=== PATIENT | female | born 2000 | race Caucasian/White ===

== ENCOUNTER 2020-07-03 02:24 | Emergency (ER) | payer SELFPAY ==
--- NOTE | 2020-07-03 02:28 | XR_ITS ---
WS: [id number] Chest 2 views, 07/03/2020 Clinical Data: cough Comparison: Portable chest, 01/29/2012. Findings: No nodules, masses or effusions are seen. The heart is normal. The pulmonary vascularity is not increased. No pneumonia or pneumothorax is seen. XR/XR chest 2V* [id number] Impression: Negative chest.
[2020-07-03 02:30] VITALS: BP 142/99; PULSE 133; RESP 17; TEMP 36.6; O2SAT 97; BMI 38.7
--- NOTE | 2020-07-03 02:39 | ECG_ITS ---
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 Measurements Intervals [place] Rate: 131 P: 19 HI: 140 QRS: 58 QRSD: 90 T: 1 QT: 296 QTc: 438 Interpretive Statements SINUS TACHYCARDIA NONSPECIFIC T-WAVE ABNORMALITY ABNORMAL RHYTHM ECG No previous ECG available for comparison Electronically Signed On 07-03-2020 11:32:59 CDT by Jami Montes De Oca M.D. [id number]
--- NOTE | 2020-07-03 02:41 | ED_ITS ---
HPI - General Adult General: Chief complaint: General Medical Stated complaint: cough/dizzy Time Seen by Provider: 07/03/20 02:28 Source: patient Mode of arrival: ambulatory Limitations: no limitations History of Present Illness: HPI narrative: 20-year-old female who states she is drinking water and felt like she aspirated some. States since then she is had some dizziness along with slight shortness of breath. Patient states she has severe anxiety has been feeling quite anxious as well. She denies any worsening improving factors. Patient is tachycardic and appears anxious here. Associated symptoms: Reports dyspnea; Deny chest pain, headache(s), nausea, rash or vomiting Review of Systems Const: Denies: fever(s), chills, body aches or change in appetite Eyes: Denies: blurry vision or eye discomfort ENMT: Denies: throat pain or dental pain Card: Denies: chest pain Resp: Reports: dyspnea GI: Denies: abdominal pain, nausea, vomiting or diarrhea : Denies: dysuria Musc: Denies: neck pain or back pain Skin/Breast: Denies: rash Neuro: Denies: headache(s) Psych: Reports: anxiety; Denies: depression Mike/Lymph: Denies: easy bruising All/Imm: Denies: urticaria [facility] ED Female Reproductive History: Date of last menstrual period: 07/02/20 Physical Exam Const: COMMON NORMALS: no acute distress, patient oriented x3 and healthy appearing HENMT: COMMON NORMALS: normocephalic and atraumatic HEAD & SCALP: normocephalic and atraumatic Eye: COMMON NORMALS: Equal, round and reactive pupils present and EOMs intact bilaterally PUPIL: Yes Equal, round and reactive pupils present Neck/C-Spine: COMMON NORMALS: full ROM and supple Chest: COMMONS NORMALS: normal inspection of the chest and normal palpation of entire chest wall Resp: COMMON NORMALS: normal respiratory effort, No retractions, No use of accessory muscles and clear to auscultation bilaterally AUSCULTATION: clear to auscultation bilaterally Cardio: COMMON NORMALS: regular rhythm and No murmurs present (Cardio) RATE: tachycardic RHYTHM: regular rhythm GI: COMMON NORMALS: Normal to inspection, nondistended, normoactive bowel sounds present, Soft to palpation, non-tender and no masses PALPATION: Yes Soft to palpation Extremity: COMMON NORMALS: normal to inspection and full ROM Neuro: COMMON NORMALS: patient oriented x3, moves all extremities and no focal motor deficits Psych: COMMON NORMALS: mental status grossly normal, Normal thought process present and cooperative MOOD & AFFECT: Yes anxious THOUGHT PROCESS: Normal thought process present Skin: COMMON NORMALS: no rashes or lesions noted and no wounds GENERAL SKIN EXAM: no rashes or lesions noted Course Vital Signs: Vital signs: Vital Signs Temperature 97.9 F 07/03/20 02:30 Pulse Rate 129 H 07/03/20 03:55 Respiratory Rate 16 07/03/20 03:55 Blood Pressure 130/82 07/03/20 03:55 Pulse Oximetry 98 07/03/20 03:55 MDM - General Adult MDM Narrative: Medical decision making narrative: Ai presents here with dyspnea after aspirating water. She has no signs of pneumonia and is well- appearing here. Patient is tachycardic but she states she has severe anxiety and is always tachycardic. Her d-dimer is negative and has no signs of pulmonary embolism. Patient feels improved here after Ativan. She is stable for discharge and is to follow-up with her primary care doctor in 3 to 5 days and return if worsening. Lab Data: Labs: Lab Results 07/03/20 07/03/20 07/03/20 Range/Units 02:55 02:55 02:55 WBC 10.2 H (4.0-10.0) 10^3/ uL RBC 5.13 (4.1-5.3) 10^6/u L Hgb 13.6 (11.5-15.3) g/dL Hct 44.1 (37.0-47.0) % MCV 86.0 (81-99) fL MCH 26.5 L (28.0-34.0) pg MCHC 30.8 (30.0-36.0) g/dL RDW 13.2 (12.1-15.1) % Plt Count 345 (130-400) 10^3/c mm MPV 11.6 H (7.4-10.4) fL Neut % (Auto) 69.1 % Lymph % (Auto) 23.2 % [place] % (Auto) 7.3 % Eos % (Auto) 0.1 % Baso % (Auto) 0.1 % Neut # (Auto) 7.06 (1.8-7.7) 10^3/u L Lymph # (Auto) 2.4 (0.8-4.8) 10^3/u L [place] # (Auto) 0.8 (0.2-0.9) 10^3/u L Eos # (Auto) 0.0 (0.0-0.8) 10^3/u L Baso # (Auto) 0.0 (0.0-0.1) 10^3/u L Nucleated RBC % (a uto) 0 % Nucleated RBCs # 0.0 /100WBC D-Dimer (0-0.59) ug/mIFE U Sodium 137 (136-145) mmol/L Potassium 3.7 (3.5-5.1) mmol/L Chloride 102 (98-107) mmol/L Carbon Dioxide 25 (22-29) mmol/L Anion Gap 13.7 (5-19) BUN 9 (6-20) mg/dL Creatinine 0.8 (0.5-0.9) mg/dL GFR Calculation 90.5 (90-130) mL/min Glucose 111 (65-115) mg/dL Calculated Osmolal ity 281 L (285-295) mOsm/k g Calcium 9.5 (8.5-10.5) mg/dL Total Bilirubin 0.4 (0.15-1.2) mg/dL AST 15 (0-32) U/L ALT 18 (0-33) U/L Alkaline Phosphata se 112 H (35-105) IU/L Total Protein 8.2 (6.6-8.7) g/dL Albumin 4.1 (3.5-5.2) g/dL Globulin 4.1 (1.3-4.6) g/dL HCG, Qual Negative (Negative) 07/03/20 Range/Units 02:55 WBC (4.0-10.0) 10^3/ uL RBC (4.1-5.3) 10^6/u L Hgb (11.5-15.3) g/dL Hct (37.0-47.0) % MCV (81-99) fL MCH (28.0-34.0) pg MCHC (30.0-36.0) g/dL RDW (12.1-15.1) % Plt Count (130-400) 10^3/c mm MPV (7.4-10.4) fL Neut % (Auto) % Lymph % (Auto) % [place] % (Auto) % Eos % (Auto) % Baso % (Auto) % Neut # (Auto) (1.8-7.7) 10^3/u L Lymph # (Auto) (0.8-4.8) 10^3/u L [place] # (Auto) (0.2-0.9) 10^3/u L Eos # (Auto) (0.0-0.8) 10^3/u L Baso # (Auto) (0.0-0.1) 10^3/u L Nucleated RBC % (a uto) % Nucleated RBCs # /100WBC D-Dimer 0.49 (0-0.59) ug/mIFE U Sodium (136-145) mmol/L Potassium (3.5-5.1) mmol/L Chloride (98-107) mmol/L Carbon Dioxide (22-29) mmol/L Anion Gap (5-19) BUN (6-20) mg/dL Creatinine (0.5-0.9) mg/dL GFR Calculation (90-130) mL/min Glucose (65-115) mg/dL Calculated Osmolal ity (285-295) mOsm/k g Calcium (8.5-10.5) mg/dL Total Bilirubin (0.15-1.2) mg/dL AST (0-32) U/L ALT (0-33) U/L Alkaline Phosphata se (35-105) IU/L Total Protein (6.6-8.7) g/dL Albumin (3.5-5.2) g/dL Globulin (1.3-4.6) g/dL HCG, Qual (Negative) Imaging Data^: CXR: Attestation: I personally reviewed and interpreted this imaging study as follows: My impression: no acute abnormality EKG Data^: EKG 1: Attestation: I personally reviewed and interpreted this EKG as follows: EKG interpretation date: 07/03/20 EKG interpretation time: 02:51 Interpretation: sinus tach hr [address] or t wave abnormalities Discharge Plan Discharge Patient Disposition: Home Clinical Impression: Dizziness, Cough, Anxiety Condition: Stable Discharge Orders: Discharge Order (Routine); Ordered 07/03/20 Ordered By: Seven Mercado Referrals: Bartolo,BELINDA Woodall [Primary Care Provider] - 1-3 days Discharge Diet: Advance as tolerated Discharge Activity: Resume usual activity Patient Instructions: Dizziness (ED) Discharge Date/Time: 07/03/20 03:55 Coding Level of Care Code ED Bobbin Hauler for Chg Fwd Exam Comprehensive
[2020-07-03] MEDS: sodium chloride 0.9% 1,000 ML 999 ML IV (02:52)
[2020-07-03 02:55] VITALS: BP 147/90; PULSE 133; RESP 16; O2SAT 97
[2020-07-03] MEDS: LORazepam 2 mg/mL INJ 1 mL 1 MG IVP (03:01)
--- NOTE | 2020-07-03 03:03 | PC.NURSE ---
PATIENT TO RADIOLOGY
[2020-07-03 03:06] LABS: Basophils % 0.1 %; Eosinophils % 0.1 %; Hematocrit 44.1 % (37.0-47.0); Hemoglobin 13.6 g/dL (11.5-15.3); Lymphocytes # 2.4 10^3/uL (0.8-4.8); Lymphocytes % 23.2 %; Mean Corpuscular HGB Conc 30.8 g/dL (30.0-36.0); Mean Corpuscular Hemoglobin 26.5 pg (28.0-34.0); Mean Platelet Volume 11.6 fL (7.4-10.4); Monocytes # 0.8 10^3/uL (0.2-0.9); Monocytes % 7.3 %; Neutrophils # 7.06 10^3/uL (1.8-7.7); Neutrophils % 69.1 %; Nucleated Red Blood Cells % 0 %; Platelet Count 345 10^3/cmm (130-400); Red Blood Count 5.13 10^6/uL (4.1-5.3); Red Cell Distribution Width 13.2 % (12.1-15.1); White Blood Count 10.2 10^3/uL (4.0-10.0)
[2020-07-03 03:16] LABS: Alanine Aminotransferase 18 U/L (0-33); Albumin Level 4.1 g/dL (3.5-5.2); Alkaline Phosphatase 112 IU/L (35-105); Anion Gap 13.7 (5-19); Aspartate Amino Transferase 15 U/L (0-32); Blood Urea Nitrogen 9 mg/dL (6-20); Calcium 9.5 mg/dL (8.5-10.5); Carbon Dioxide 25 mmol/L (22-29); Chloride 102 mmol/L (98-107); Globulin 4.1 g/dL (1.3-4.6); Glomerular Filtration Rate 90.5 mL/min (90-130); Glucose 111 mg/dL (65-115); Osmolality Calculated 281 mOsm/kg (285-295); Potassium 3.7 mmol/L (3.5-5.1); Sodium 137 mmol/L (136-145); Total Bilirubin 0.4 mg/dL (0.15-1.2); Total Protein 8.2 g/dL (6.6-8.7)
[2020-07-03 03:24] LABS: HCG, Serum Qual Negative (Negative)
[2020-07-03 03:28] VITALS: BP 136/88; PULSE 131; O2SAT 97
[2020-07-03 03:47] LABS: D Dimer 0.49 ug/mIFEU (0-0.59)
[2020-07-03 03:53] VITALS: BP 136/88; PULSE 129; RESP 16; O2SAT 99
[2020-07-03 03:55] VITALS: BP 130/82; PULSE 129; RESP 16; O2SAT 98
== END 2020-07-03 03:55 | disposition home or self-care (01) ==
PROVIDERS: Emergency Provider Emergency Medicine; PCP Nurse Practitioner Family
DX: R05 Cough (principal); R42 Dizziness and giddiness; F41.9 Anxiety disorder, unspecified
CPT/HCPCS: 12345; 71046; 80053; 84703; 85025; 85378; 93005; 96361; 96374; 96375; 99283; J2060; J7030

== ENCOUNTER → 2021-02-16 10:30 | Outpatient (BNVA) | payer OTHER, SELFPAY | PROVIDERS: Visit Provider Nurse Practitioner Psychiatric/Mental Health | DX: Z03.89 Encounter for observation for other suspected diseases and conditions ruled out (principal) | CPT/HCPCS: 80053 ==

== ENCOUNTER 2023-11-08 11:39 | Outpatient (CLI) | payer MEDICAID, SELFPAY ==
[2023-11-08 12:25] LABS: Basophils % 0.2 %; Eosinophils % 0.2 %; Hematocrit 40.9 % (36-47); Lymphocytes # 3.4 10^3/uL (0.8-4.8); Lymphocytes % 28.4 %; Mean Corpuscular HGB Conc 30.8 g/dL (30-55); Mean Corpuscular Hemoglobin 25.1 pg (27-33); Mean Corpuscular Volume 81.5 fl (85-98); Mean Platelet Volume 10.9 fL (7.4-10.4); Monocytes # 0.8 10^3/uL (0.2-0.9); Monocytes % 6.7 %; Neutrophils # 7.72 10^3/uL (1.8-7.7); Neutrophils % 64.1 %; Nucleated Red Blood Cells % 0 %; Platelet Count 344 10^3/cmm (157-399); Red Blood Count 5.02 10^6/uL (3.85-5.65); Red Cell Distribution Width 14.3 % (12.1-15.1); White Blood Count 12.04 10^3/uL (3.29-11.43)
[2023-11-08 13:00] LABS: Alanine Aminotransferase 11 U/L (0-33); Albumin Level 3.8 g/dL (3.5-5.2); Alkaline Phosphatase 103 U/L (35-105); Anion Gap 13.7 (5-19); Aspartate Amino Transferase 11 U/L (0-32); Blood Urea Nitrogen 16 mg/dL (6-20); Calcium 9.3 mg/dL (8.5-10.5); Carbon Dioxide 26 mmol/L (22-29); Chloride 104 mmol/L (98-107); Chol HDL Ratio 2.78 mg/dL (0.0-4.40); Cholesterol 136 mg/dL (0-200); Free T4 Free Thyroxine 1.02 ng/dL (0.82-1.77); Globulin 3.6 g/dL (1.3-4.6); Glomerular Filtration Rate 151.6 mL/min (90-130); Glucose 105 mg/dL (65-115); HDL Cholesterol 49 mg/dL (60-100); LDL Cholesterol Calculated 73 mg/dL (50-129); LDL HDL Ratio 1.49 RATIO (0.00-3.22); Osmolality Calculated 292 mOsm/kg (285-295); Potassium 3.7 mmol/L (3.5-5.1); Sodium 140 mmol/L (136-145); Thyroid Stimulating Hormone 4.88 uIU/mL (0.27-4.20); Total Bilirubin 0.2 mg/dL (0.15-1.2); Total Protein 7.4 g/dL (6.6-8.7); Triglycerides 70 mg/dL (0-150)
== END 2023-11-08 11:40 | disposition home or self-care (01) ==
LOC: LAB 11:58
PROVIDERS: PCP Nurse Practitioner Family; Visit Provider Nurse Practitioner Family
DX: I10 Essential (primary) hypertension (principal)
CPT/HCPCS: 36415; 80053; 80061; 84439; 84443; 85025

== ENCOUNTER 2024-03-31 10:45 | Emergency (ER) | payer MEDICAID, SELFPAY ==
[2024-03-31] VITALS (10 sets, daily range): BP systolic 118–151; BP diastolic 82–92; PULSE 98–111; RESP 16–20; TEMP 36.6; O2SAT 96–100
--- NOTE | 2024-03-31 10:51 | ECG_ITS ---
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 Measurements Intervals [place] Rate: 108 P: 27 W[place]: 143 QRS: 65 QRSD: 97 T: 42 QT: 318 QTc: 427 Interpretive Statements SINUS TACHYCARDIA ABNORMAL RHYTHM ECG Compared to ECG 07/03/2020 02:51:34 T-wave abnormality no longer present Electronically Signed On 04-01-2024 8:33:19 CDT by Chung Kumar M.D. [email or web address]/NU/[id number] f
--- NOTE | 2024-03-31 11:03 | XRR_ITS ---
PROCEDURE INFORMATION: Exam: XR Chest Exam date and time: 03/31/2024 11:09 AM Age: 23 years old Clinical indication: Pain; Chest pressure; Additional info: L lower chest pain TECHNIQUE: Imaging protocol: Radiologic exam of the chest. Views: 1 view. COMPARISON: CR XR chest 2V* [id number] 07/03/2020 3:12 AM FINDINGS: Lungs: The right lung is clear. There is mild ill-defined retrocardiac opacity on the left. Pleural spaces: There is no pleural effusion or pneumothorax. Heart/Mediastinum: The cardiac silhouette is within normal limits of size given AP technique. Bones/joints: Bones are unremarkable. XR/XR chest 1V portable [id number] IMPRESSION: Mild retrocardiac opacity on the left. Nonspecific. Possible atelectasis or consolidation. Consider PA and lateral chest radiographs for clarification.
--- NOTE | 2024-03-31 11:06 | ED_ITS ---
HPI - Abdominal Pain 2 General: Chief Complaint: Abdominal Pain Stated Complaint: chest and abdominal pains Time Seen by Provider: 03/31/24 10:57 Source: patient and family Mode of arrival: ambulatory Limitations: no limitations History of Present Illness: Left lower chest pain that also radiates around to the back. As well as right lower quadrant abdominal pain. Left lower chest pain has been going on for 2 to 3 days. Comes and goes worse with certain movements such as leaning forward. Patient seemed somewhat shy so history is mildly difficult but appears to the right lower quadrant pain the abdomen is a new pain that is come on more recently. Review of Systems 2 General: Reports: 10 or more systems reviewed and unremarkable except in HPI and below PFSH ED 2 PFSH: Medical History (Updated 03/31/24 @ 14:13 by Demian Grant MD) DOT (generalized anxiety disorder) As noted in HPI. Major depressive disorder, recurrent, moderate As noted in HPI. Social History Smoking and tobacco/nicotine status: never used tobacco/nicotine Second hand smoke exposure: No Current gender identity: Female Physical Exam 2 Const: COMMON NORMALS: no acute distress, average body habitus, patient oriented x3, healthy appearing, alert and well nourished GENERAL APPEARANCE: well kempt and well developed NUTRITIONAL APPEARANCE: obese HENMT: COMMON NORMALS: normocephalic, atraumatic, external ears normal and moist oral mucous membranes HEAD & SCALP: normocephalic and atraumatic E XTERNAL EAR: Yes external ears normal Eye: COMMON NORMALS: Equal, round and reactive pupils present, EOMs intact bilaterally and conjunctivae normal CONJUNCTIVA: Yes conjunctivae normal P UPIL: Yes Equal, round and reactive pupils present Neck/C-Spine: COMMON NORMALS: full ROM, no lymphadenopathy and supple Chest: CHEST: Yes Symmetrical chest wall rise and No Surgical scars present (Chest) Resp: COMMON NORMALS: normal respiratory effort, No retractions, No use of accessory muscles and clear to auscultation bilaterally AUSCULTATION: clear to auscultation bilaterally Cardio: COMMON NORMALS: regular rate, regular rhythm, S1 normal heart sound present, S2 normal heart sound present, No gallops present (Cardio), No clicks present (Cardio), No murmurs present (Cardio) and No rub (Cardio) RATE: r egular rate RHYTHM: regular rhythm HEART SOUNDS: S1 normal heart sound present, S2 normal heart sound present and no murmurs PERIPHERAL PULSES: o ther (Radial pulses 2+ and symmetric) GI: COMMON NORMALS: Soft to palpation, non-tender, No hepatosplenomegaly present and no masses INSPECTION: No abdominal distension PALPATION: Yes Soft to palpation, Yes Tenderness to palpation present (GI) Details: RLQ and RUQ, No Guarding due to palpation present (GI), Yes No hepatosplenomegaly present and No Rebound tenderness present : COMMON NORMALS: Yes no CVA tenderness BLADDER/KIDNEY EXAM: Yes no CVA tenderness Back/Pelvis: COMMON NORMALS: no CVA tenderness Extremity: COMMON NORMALS: normal to inspection, full ROM, capillary refill normal and no clubbing, cyanosis or edema Neuro: COMMON NORMALS: patient oriented x3 SENSORIUM/ORIENTATION: Yes alert Psych: APPEARANCE: Yes well kempt Skin: COMMON NORMALS: no rashes or lesions noted, no wounds, turgor normal and no jaundice GENERAL SKIN EXAM: no rashes or lesions noted and turgor normal Course 2 Vital Signs: Vital signs: Vital Signs Temperature 97.8 F 03/31/24 10:54 Pulse Rate 98 03/31/24 15:28 Respiratory Rate 17 03/31/24 15:28 Blood Pressure 139/91 03/31/24 15:28 Pulse Oximetry 97 03/31/24 15:28 Oxygen Delivery Me thod Room Air 03/31/24 14:00 MDM - Abdominal Pain Medical Decision Making CT scan done which was unremarkable except for gallstones are present and gallbladder was distended. Ultrasound done shows gallstones but no thickened gallbladder wall or pericholecystic fluid. Also negative sonographic Mendez's. Will advise patient to follow-up on GI or general surgery however urine does show 2+ bacteria, white cells and trace leuks in urine. Will treat for UTI. Differential Diagnosis Likely abdominal pain, acute appendicitis, calculus of kidney, constipation, diverticulitis and gastroenteritis Medical Records I reviewed the patient's medical records. Lab Data I reviewed the patient's lab results. 03/31/24 11:09 03/31/24 11:09 Labs/Radiology: Radiology Impressions Chest X-Ray 03/31/24 11:03 IMPRESSION: Mild retrocardiac opacity on the left. Nonspecific. Possible atelectasis or consolidation. Consider PA and lateral chest radiographs for clarification. Abdomen/Pelvis CT 03/31/24 11:52 IMPRESSION: 1. Cholelithiasis and mild gallbladder distension. If clinically indicated, ultrasound or HIDA scan would provide a more sensitive evaluation for acute gallbladder pathology. 2. Additional findings, as above. COMMENTS: Consistent with the [employer] [employer]'s Incidental Findings Committee white paper (J Am Elizabeth Radiol 2018): Any incidental renal lesion less than 1 cm or classified as too small to characterize, or any incidental cystic renal lesion characterized as simple-appearing, is likely benign. No follow-up imaging is recommended for these lesions per consensus recommendations based on imaging criteria. Abdomen Ultrasound 03/31/24 13:05 IMPRESSION: Cholelithiasis without sonographic evidence of acute cholecystitis. Laboratory Results WBC 12.45 10^3/uL (3.29-11.43) H 03/31/24 11:09 RBC 5.05 10^6/uL (3.85-5.65) 03/31/24 11:09 Hgb 12.60 g/dL (11.27-16.99) 03/31/24 11:09 Hct 42.0 % (36-47) 03/31/24 11:09 MCV 83.2 fl (85-98) L 03/31/24 11:09 MCH 25.0 pg (27-33) L 03/31/24 11:09 MCHC 30.0 g/dL (30-55) 03/31/24 11:09 RDW 14.6 % (12.1-15.1) 03/31/24 11:09 Plt Count 354 10^3/cmm (157-399) 03/31/24 11:09 MPV 10.3 fL (7.4-10.4) 03/31/24 11:09 Neut % (Auto) 68.9 % 03/31/24 11:09 Lymph % (Auto) 23.3 % 03/31/24 11:09 [place] % (Auto) 7.2 % 03/31/24 11:09 Eos % (Auto) 0.1 % 03/31/24 11:09 Baso % (Auto) 0.2 % 03/31/24 11:09 Neut # (Auto) 8.57 10^3/uL (1.8-7.7) H 03/31/24 11:09 Lymph # (Auto) 2.9 10^3/uL (0.8-4.8) 03/31/24 11:09 [place] # (Auto) 0.9 10^3/uL (0.2-0.9) 03/31/24 11:09 Eos # (Auto) 0.0 10^3/uL (0.0-0.8) 03/31/24 11:09 Baso # (Auto) 0.0 10^3/uL (0.0-0.1) 03/31/24 11:09 Nucleated RBC % (auto) 0 % 03/31/24 11:09 Nucleated RBCs # 0.0 /100WBC 03/31/24 11:09 Sodium 139 mmol/L (136-145) 03/31/24 11:09 Potassium 4.0 mmol/L (3.5-5.1) 03/31/24 11:09 Chloride 102 mmol/L (98-107) 03/31/24 11:09 Carbon Dioxide 28 mmol/L (22-29) 03/31/24 11:09 Anion Gap 13.0 (5-19) 03/31/24 11:09 BUN 16 mg/dL (6-20) 03/31/24 11:09 Creatinine 0.7 mg/dL (0.5-0.9) 03/31/24 11:09 GFR Calculation 102.8 mL/min (90-130) 03/31/24 11:09 Glucose 112 mg/dL (65-115) 03/31/24 11:09 Calculated Osmolality 290 mOsm/kg (285-295) 03/31/24 11:09 Lactic Acid 1.2 mmol/L (0.5-2.2) 03/31/24 11:09 Calcium 9.5 mg/dL (8.5-10.5) 03/31/24 11:09 Total Bilirubin 0.3 mg/dL (0.15-1.2) 03/31/24 11:09 AST 17 U/L (0-32) 03/31/24 11:09 ALT 16 U/L (0-33) 03/31/24 11:09 Alkaline Phosphatase 114 U/L (35-105) H 03/31/24 11:09 Total Protein 8.0 g/dL (6.6-8.7) 03/31/24 11:09 Albumin 4.0 g/dL (3.5-5.2) 03/31/24 11:09 Globulin 4.0 g/dL (1.3-4.6) 03/31/24 11:09 HCG, Qual Negative (Negative) 03/31/24 11:54 Urine Color Dark yellow (Yellow) 03/31/24 11:54 Urine Appearance Slightly cloudy (CLEAR) 03/31/24 11:54 Urine pH 5 (5-7) 03/31/24 11:54 Ur Specific [place] 1.020 (1.005-1.030) 03/31/24 11:54 Urine Protein Neg (Negative) 03/31/24 11:54 Urine Glucose (UA) Norm (Normal) 03/31/24 11:54 Urine Ketones Negative (Negative) 03/31/24 11:54 Urine Blood Neg (Negative) 03/31/24 11:54 Urine Nitrate Negative (Negative) 03/31/24 11:54 Urine Bilirubin 1+ (Negative) H 03/31/24 11:54 Urine Urobilinogen Norm mg/dL (Negative) 03/31/24 11:54 Ur Leukocyte Esterase Trace (Negative) H 03/31/24 11:54 Urine RBC None /hpf (0-2) 03/31/24 11:54 Urine WBC 0-4 /hpf (0-5) H 03/31/24 11:54 Ur Squamous Epith Cells 5-10 /hpf (0-5) H 03/31/24 11:54 Amorphous Sediment Not Reportable 03/31/24 11:54 Urine Bacteria 2+ /hpf (NONE) H 03/31/24 11:54 Urine Opiates Screen Negative ng/mL (Negative) 03/31/24 11:54 Ur Barbiturates Screen Negative ng/mL (Negative) 03/31/24 11:54 Ur Phencyclidine Scrn Negative ng/mL (Negative) 03/31/24 11:54 Ur Amphetamines Screen Negative ng/mL (Negative) 03/31/24 11:54 U Benzodiazepines Scrn Negative ng/mL (Negative) 03/31/24 11:54 Urine Cocaine Screen Negative ng/mL (Negative) 03/31/24 11:54 U Marijuana (THC) Screen Negative ng/mL (Negative) 03/31/24 11:54 All radiology interpretation(s) finalized by discharge ED provider radiology interpretation(s): Personally reviewed CT images and ultrasound images. Gallstones without signs of acute cholecystitis otherwise unremarkable. Normal gallbladder wall on ultrasound. Discharge Plan Discharge Patient Disposition: Home Clinical Impression: UTI (urinary tract infection) Qualifiers: Urinary tract infection type: acute cystitis Hematuria presence: without hematuria Qualified Code(s): N30.00 - Acute cystitis without hematuria Cholelithiasis Qualifiers: Cholelithiasis location: gallbladder Cholecystitis presence: without cholecystitis Biliary obstruction: without biliary obstruction Qualified Code(s): K80.20 - Calculus of gallbladder without cholecystitis without obstruction Condition: Stable Prescriptions: New ketorolac 10 mg tablet 10 mg PO Q6H PRN (Reason: pain) 5 Days Qty: 20 0RF Bactrim DS 800-160 mg tablet 1 tab PO BID 5 Days Qty: 10 0RF No Action pantoprazole 40 mg tablet,delayed release (DR/EC) 40 mg PO DAILY ibuprofen 800 mg tablet 800 mg PO TID PRN (Reason: pain) hydroxyzine HCl 50 mg tablet 50 mg PO BID PRN (Reason: anxiety/panic) Qty: 60 2RF Rx Instructions: take one tablet twice daily, if needed for anxiety/panic symptoms bupropion HCl 300 mg tablet extended release 24 hr 300 mg PO QAM Qty: 30 2RF Rx Instructions: Take one tablet by mouth every morning buspirone 30 mg tablet 30 mg PO BID Qty: 60 2RF Rx Instructions: Take one tablet by mouth each morning and evening escitalopram oxalate 20 mg tablet 20 mg PO .Each evening Qty: 30 2RF Rx Instructions: Take 1 tablet daily by mouth each evening Discharge Orders: Discharge ED (Routine); Ordered 03/31/24 Ordered By: Demian Grant Referrals: Talisha Mcfarland APN [Primary Care Provider] - Discharge Diet: Advance as tolerated, Usual diet and GI Soft Discharge Activity: Resume usual activity Patient Instructions: Gallstones (ED), Urinary Tract Infection in Women (ED) Activity Restrictions/Additional Instructions: Follow-up with your primary care and consider referral to GI or general surgery to further investigate gallbladder. However I feel that today's issues are related to a UTI. I have sent you in some antibiotics and you have been given a dose of antibiotics today. You can start your prescription antibiotics tomorrow. I have also sent you some medicine for the pain. It is not a controlled medicine and will not alter your breathing or make you drowsy Coding Level of Care Code ED Casing Soaker for Elli Moraes
[2024-03-31 11:14] LABS: Basophils % 0.2 %; Eosinophils % 0.1 %; Lymphocytes # 2.9 10^3/uL (0.8-4.8); Lymphocytes % 23.3 %; Mean Corpuscular Volume 83.2 fl (85-98); Mean Platelet Volume 10.3 fL (7.4-10.4); Monocytes # 0.9 10^3/uL (0.2-0.9); Monocytes % 7.2 %; Neutrophils # 8.57 10^3/uL (1.8-7.7); Neutrophils % 68.9 %; Nucleated Red Blood Cells % 0 %; Platelet Count 354 10^3/cmm (157-399); Red Blood Count 5.05 10^6/uL (3.85-5.65); Red Cell Distribution Width 14.6 % (12.1-15.1); White Blood Count 12.45 10^3/uL (3.29-11.43)
[2024-03-31] MEDS: ondansetron 2 mg/ML SDV 2 mL 4 MG IVP (11:14)
[2024-03-31] MEDS: sodium chloride 0.9% 1,000 ML 999 ML IV (11:14)
[2024-03-31 11:33] LABS: Alanine Aminotransferase 16 U/L (0-33); Alkaline Phosphatase 114 U/L (35-105); Aspartate Amino Transferase 17 U/L (0-32); Blood Urea Nitrogen 16 mg/dL (6-20); Calcium 9.5 mg/dL (8.5-10.5); Carbon Dioxide 28 mmol/L (22-29); Chloride 102 mmol/L (98-107); Creatinine Clr Calc Pharmacy 166.1543; Glomerular Filtration Rate 102.8 mL/min (90-130); Glucose 112 mg/dL (65-115); Osmolality Calculated 290 mOsm/kg (285-295); Sodium 139 mmol/L (136-145); Total Bilirubin 0.3 mg/dL (0.15-1.2)
[2024-03-31 11:34] LABS: Lactic Sepsis W/Reflex 1.2 mmol/L (0.5-2.2)
--- NOTE | 2024-03-31 11:52 | CTR_ITS ---
PROCEDURE INFORMATION: Exam: CT Abdomen And Pelvis With Contrast Exam date and time: 03/31/2024 12:28 PM Age: 23 years old Clinical indication: Abdominal pain; Localized; Other: Rlq pain, leukocytosis, tachycardia, also luq pain TECHNIQUE: Imaging protocol: Computed tomography of the abdomen and pelvis with contrast. Axial, coronal and sagittal reformatted images were created and reviewed. Radiation optimization: All CT scans at this facility use at least one of these dose optimization techniques: automated exposure control; mA and/or kV adjustment per patient size (includes targeted exams where dose is matched to clinical indication); or iterative reconstruction. Contrast material: OMNI 350; Contrast volume: 100 ml; Contrast route: INTRAVENOUS (IV); COMPARISON: CT abdomen pelvis w con* [id number] 11/08/2017 10:37 AM RADIATION DOSE METRICS: Total DLP (mGy-cm): 1288.72 FINDINGS: Liver: Unremarkable. Gallbladder and bile ducts: Cholelithiasis and mild gallbladder distension. Pancreas: Unremarkable. Spleen: Unremarkable. Adrenal glands: Normal. No mass. Kidneys and ureters: 6 mm low-density left renal lesion, too small to characterize. No radiodense calculi. No hydronephrosis. Stomach and bowel: No bowel wall thickening. No obstruction. No pneumatosis. Appendix: Normal. Intraperitoneal space: No free fluid. No organized fluid collection. No free air. Vasculature: Unremarkable. No aneurysm. Lymph nodes: No pathologically enlarged lymph nodes. Urinary bladder: Unremarkable as visualized. Reproductive: Probable involuting right ovarian corpus luteal cyst versus dominant follicle. Bones/joints: No acute osseous abnormality. Soft tissues: Small, fat containing umbilical hernia. CT/CT abdomen pelvis w con* [id number] IMPRESSION: 1. Cholelithiasis and mild gallbladder distension. If clinically indicated, ultrasound or HIDA scan would provide a more sensitive evaluation for acute gallbladder pathology. 2. Additional findings, as above. COMMENTS: Consistent with the [employer]'s Incidental Findings Committee white paper (J Am Elizabeth Radiol 2018): Any incidental renal lesion less than 1 cm or classified as too small to characterize, or any incidental cystic renal lesion characterized as simple-appearing, is likely benign. No follow-up imaging is recommended for these lesions per consensus recommendations based on imaging criteria.
[2024-03-31 12:04] LABS: HCG Qualitative Urine. Negative (Negative)
[2024-03-31 12:12] LABS: Amphetamines Screen Urine Negative (Negative); Barbiturates Screen Urine Negative (Negative); Benzodiazepines Screen Urine Negative (Negative); Cocaine Screen Urine Negative (Negative); Opiate Screen Urine Negative (Negative); PCP Screen Urine Negative (Negative); THC Screen Urine Negative (Negative)
[2024-03-31 12:13] LABS: Urine Appearance Slightly Cloudy (CLEAR); Urine Color Dark Yellow (Yellow); pH Urine 5 (5-7)
[2024-03-31 12:14] LABS: Add Urine Culture? No; Add Urine Microscopic? YES; Bacteria Urine 2+ /hpf; Bilirubin Urine 1+ (Negative); Blood Urine Neg (Negative); Glucose Urine UA Norm (Normal); Ketones Urine Negative (Negative); Leukocyte Esterase Urine Trace (Negative); Nitrate Urine Negative (Negative); Protein Urine Neg (Negative); Urobilinogen Urine Norm (Negative); WBC Urine 0-4 /hpf (0-5)
[2024-03-31] MEDS: iohexol 350 mg/mL 500 mL Btl (per mL) IV (12:34)
[2024-03-31] MEDS: ketorolac 30 mg/mL INJ 15 MG IVP (13:04)
--- NOTE | 2024-03-31 13:05 | USR_ITS ---
PROCEDURE INFORMATION: Exam: US Abdomen, Limited; Right Upper Quadrant Exam date and time: 03/31/2024 1:38 PM Age: 23 years old Clinical indication: Abdominal pain; Generalized; Additional info: Ruq, cholelithiasis, leukocytosis TECHNIQUE: Imaging protocol: Real time ultrasound of the abdomen with image documentation. Limited exam focused on the right upper quadrant. COMPARISON: CT abdomen pelvis w con* [id number] 03/31/2024 12:28 PM FINDINGS: Liver: Unremarkable. Gallbladder: Cholelithiasis and mild gallbladder distension. No gallbladder wall thickening or pericholecystic fluid. Negative sonographic Mendez's sign, as per the performing gas adjuster. Biliary ducts: Normal. No stones. No dilation. Pancreas: Unremarkable as visualized. Right kidney: No mass. No definite stones. No hydronephrosis. US/US abdomen limited [id number] IMPRESSION: Cholelithiasis without sonographic evidence of acute cholecystitis.
[2024-03-31] MEDS: cefTRIAXone 2,000 MG in sodium chloride 0.9% (plus) 50 ML 100 MG IV (14:28)
--- NOTE | 2024-03-31 15:19 | PC.NURSE ---
PT REPORTS CONCERN THAT SHE MAY BE HAVING AN ALLERGIC REACTION TO ABT STATING THAT HER RIGHT CHEEK IF HOT AND RED. VS WNL 97.5 97% RA, 92 HR, 20 RR, 139/91 B/P. PT HAS NO RASH OR HIVES NOTED, NO DIFFICULTY BREATHING. MD CARROLL REPORTED OF PT CONCERNS.
== END 2024-03-31 15:30 | disposition home or self-care (01) ==
PROVIDERS: Emergency Provider Emergency Medicine; PCP Nurse Practitioner Family
DX: N30.00 Acute cystitis without hematuria (principal); K80.20 Calculus of gallbladder without cholecystitis without obstruction
CPT/HCPCS: 71045; 74177; 76705; 80053; 80306; 81001; 81025; 83605; 85025; 93005; 96361; 96365; 96375; 99285; J0696; J1885; J2405; J7030; Q9967

== ENCOUNTER 2024-06-24 10:11 | Outpatient (CLI) | payer MEDICAID, SELFPAY ==
[2024-06-24 10:48] LABS: Basophils % 0.2 %; Eosinophils % 0.1 %; Hematocrit 40.6 % (36-47); Lymphocytes % 22.1 %; Mean Corpuscular HGB Conc 30.5 g/dL (30-55); Mean Corpuscular Hemoglobin 25.4 pg (27-33); Mean Corpuscular Volume 83.2 fl (85-98); Mean Platelet Volume 10.7 fL (7.4-10.4); Monocytes # 0.6 10^3/uL (0.2-0.9); Monocytes % 6.8 %; Neutrophils # 6.43 10^3/uL (1.8-7.7); Neutrophils % 70.3 %; Nucleated Red Blood Cells % 0 %; Platelet Count 322 10^3/cmm (157-399); Red Blood Count 4.88 10^6/uL (3.85-5.65); Red Cell Distribution Width 14.5 % (12.1-15.1); White Blood Count 9.15 10^3/uL (3.29-11.43)
[2024-06-24 11:18] LABS: Alanine Aminotransferase 12 U/L (0-33); Albumin Level 3.9 g/dL (3.5-5.2); Alkaline Phosphatase 109 U/L (35-105); Aspartate Amino Transferase 11 U/L (0-32); Blood Urea Nitrogen 16 mg/dL (6-20); Calcium 8.6 mg/dL (8.5-10.5); Carbon Dioxide 23 mmol/L (22-29); Chloride 103 mmol/L (98-107); Chol HDL Ratio 2.51 mg/dL (0.0-4.40); Cholesterol 123 mg/dL (0-200); Globulin 3.7 g/dL (1.3-4.6); Glucose 98 mg/dL (65-115); HDL Cholesterol 49 mg/dL (60-100); LDL Cholesterol Calculated 62 mg/dL (50-129); Osmolality Calculated 289 mOsm/kg (285-295); Sodium 139 mmol/L (136-145); Thyroid Stimulating Hormone 4.92 uIU/mL (0.27-4.20); Total Bilirubin 0.3 mg/dL (0.15-1.2); Total Protein 7.6 g/dL (6.6-8.7); Triglycerides 62 mg/dL (0-150); VLDL Cholestrol Calculation 12 mg/dL (0-30)
== END 2024-06-24 10:12 | disposition home or self-care (01) ==
LOC: LAB 10:18
PROVIDERS: PCP Nurse Practitioner Family; Visit Provider Nurse Practitioner Family
DX: I10 Essential (primary) hypertension (principal); E03.9 Hypothyroidism, unspecified
CPT/HCPCS: 36415; 80053; 80061; 84443; 85025

== ENCOUNTER → 2024-07-31 05:55 | Day surgery (SDC) | payer MEDICAID, SELFPAY ==
[2024-07-31] VITALS (13 sets, daily range): BP systolic 118–150; BP diastolic 69–106; PULSE 95–117; RESP 18–24; TEMP 36.1–37.3; O2SAT 91–100; BMI 43.9
[2024-07-31] MEDS: sodium chloride 0.9% 1,000 ML 30 ML IV (06:31)
[2024-07-31] MEDS: scopolamine 1.5 Patch 1 PATCH TRANSDERMA (06:34)
[2024-07-31 06:54] LABS: OR HCG Qualitative Urine Negative (Negative)
--- NOTE | 2024-07-31 07:05 | W.PM.OPSUD ---
Surgery/Procedure H&P Update DATE OF PROCEDURE: July 31, 2024 DATE H&P PERFORMED: 07/11/24 H&P UPDATE INFORMATION: I have reviewed H&P completed within last 30 days, I have examined patient prior to procedure and No changes to prior documentation PLANNED PROCEDURE: Operation Date: 07/31/24 07:40 Proposed Procedures p Laparoscopic Cholecystectomy 95279, K80.20(Not Applicable) - Orville Vang MD
--- NOTE | 2024-07-31 07:09 | ANES.PREANE2 ---
Pre-Anesthetic Assessment Height/Weight: Height 1.68 m Weight 123.377 kg Temp Pulse Resp BP Pulse Ox O2 Del Method 99.2 F 117 H 18 127/87 96 Room Air 07/31/24 06:17 07/31/24 06:17 07/31/24 06:17 07/31/24 06:34 07/31/24 06:17 07/31/24 06:20 Operation Date: 07/31/24 07:40 Proposed Procedures p Laparoscopic Cholecystectomy 50262, K80.20(Not Applicable) - Orville Vang MD Familial anesthetic complications: None Was Beta Jose taken within 24 hours: N/A Was Clonidine taken within 24 hours: N/A Last intake: Intake Last Liquid Date 07/30/24 Last Liquid Time 23:50 Last Solid Date 07/30/24 Last Solid Time 21:30 Social No alcohol and No tobacco Exam alert, oriented x 3, clear to auscultation bilaterally and regular rate & rhythm Airway Mallampati: Class III Dentition: full CV/HEM Hypertension GI Gastroesophageal Reflux Disease Metabolic Morbid Obesity and Thyroid Disease Anesthetic Plan ASA status: 3 Anesthesia: General Risk of > 500 ml blood loss (7ml/kg in children): No Medications/Allergies Home Medications Medication Instructions Recorded Confirmed Last Taken Type pantoprazole 40 mg tablet,delayed 40 mg PO DAILY 02/16/21 07/30/24 Unknown History release bupropion HCl 300 mg 24 hr tablet, 300 mg PO QAM #30 tabs 02/28/22 07/30/24 Unknown Rx extended release buspirone 30 mg tablet 30 mg PO BID #60 tabs 02/28/22 07/30/24 07/30/24 Rx escitalopram oxalate 20 mg tablet 20 mg PO .Each evening #30 tabs 02/28/22 07/30/24 07/30/24 Rx hydroxyzine HCl 50 mg tablet 50 mg PO BID PRN anxiety/panic #60 02/28/22 07/30/24 Unknown Rx tabs diclofenac sodium 75 mg 75 mg PO BID 07/11/24 07/30/24 07/30/24 History tablet,delayed release famotidine 40 mg tablet 40 mg PO ONCE 07/11/24 07/30/24 07/30/24 History levothyroxine 50 mcg tablet 50 mcg PO DAILY 07/11/24 07/30/24 07/30/24 History omeprazole 40 mg capsule,delayed 40 mg PO ONCE 07/11/24 07/30/24 Unknown History release metoprolol succinate 25 mg 25 mg PO DAILY 07/30/24 07/30/24 07/30/24 History tablet,extended release 24 hr Allergies Allergy/AdvReac Type Severity Reaction Status Date / Time bee pollen Allergy ALGY-Nasal Verified 07/11/24 08:05 Discharge Current Medications Generic Name Dose Route Start Last Admin Trade Name Freq PRN Reason Stop Dose Admin Sodium Chloride 1,000 mls @ 30 mls/hr 07/31/24 06:15 07/31/24 06:31 Sodium Chloride 0.9% IV 08/01/24 06:14 30 mls/hr .Q24H FAUSTINO Administration PFSH Anesthesia Medical History DOT (generalized anxiety disorder) As noted in HPI. Major depressive disorder, recurrent, moderate As noted in HPI. Family History (Updated 07/11/24 @ 08:[address]) Mother Gallbladder disease Father Gallbladder disease Cancer kidney lung cancer Grandfather Colon cancer Social History Smoking and tobacco/nicotine status: never used tobacco/nicotine Second hand smoke exposure: No Current gender identity: Female Data Anesthesia Cardiac Studies: No Data to Display
[2024-07-31] MEDS: midazolam 1 mg/mL INJ 2 mL 2 MG IVP (07:34)
[2024-07-31] MEDS: ceFAZolin 3,000 MG in sodium chloride 0.9% (plus) 100 ML 200 MG IV (08:52)
[2024-07-31] MEDS: BUPivacaine 0.25% INJ 10 mL INJECTION (09:22)
[2024-07-31] MEDS: lidocaine 1% 10 ML INJ INJECTION (09:22)
--- NOTE | 2024-07-31 10:33 | P.OP_ITS ---
Pathology: Gallbladder Implant(s): None Anesthesia: General Anesthesia Complications: None Brief history/preop diagnosis: 24-year-old female who presents with symptomatic cholelithiasis. Patient agreed to proceed with the surgery after discussing risks and benefits. Full operative report:I discussed the risks and benefits of laparoscopic cholecystectomy, and obtained consent prior to proceeding to the operating room. SCDs were utilized. Prophylactic antibiotics were administered. General anesthesia was induced. The patient was placed supine, and she was prepped and draped in the usual sterile fashion. Insufflation to 15mmHg was achieved using a Veress needle at [place]'s point. A 10mm optiview trocar was placed at the umbilicus under direct visualization. The left upper quadrant was inspected, and no injuries were noted. Two 5mm ports were placed in the right upper quadrant, and a 11mm working port was placed in the epigastrium. The gallbladder was then retracted cephalad through the lateral RUQ port, and the infundibulum grabbed th rough the medial RUQ port and retracted laterally. The gallbladder was inflammed and thus consistent with her diagnosis of cholecystitis. I proceeded to score the peritoneum over the medial aspect of the gallbladder using a laparoscopic hook with electrocautery. Then the infundibulum was retracted medially in order to score the peritoneum over the lateral aspect of the galbladder. Using a combination of energy and blunt dissection with the [place] and a [place] dissector, the cystic artery and cystic duct were dissected. I then proceeded to dissect the cystic plate in order to to achieve the critical view of safety. The cystic artery and the cystic duct were clipped three times (leaving two clips on the proximal end of both structures). I then proceeded to dissect the gallbladder off the liver using hook electrocautery. The specimen was placed in an endocatch bag and retrieved from the abdomen through the port on the epigastrium. I then irrigated the gallbladder fossa with 2L of NS to confirm adequate hemostasis and the absence of any bile leaks. The gallbladder fossa was then cauterized again. Prior to ending the laparoscopic portion, I examined the rest of the abdomen and did not find any abnormalities or injuries. The abdomen was then desufflated. Skin was closed using 4-0 monocryl and surgical glue. The patient woke up from anesthesia and transferred to PACU without any co mplications. Condition: Stable Dispostion: Home
--- NOTE | 2024-07-31 11:20 | PC.NURSE ---
1109 - oral airway out per pt - simple mask remains in place
--- NOTE | 2024-07-31 12:30 | ANE.PACU2 ---
Inpatient post-anesthesia follow up: Airway intact: Yes Vital signs: Temperature 97.5 F Pulse Rate 101 Respiratory Rate 20 Blood Pressure 140/97 Pulse Oximetry 96 Oxygen Delivery Me thod Room Air Oxygen Flow Rate 2 Fraction of Inspir ed Oxygen Hydration adequate: Yes Nausea and vomiting: No Pain level: 1 Mental status: Baseline
== END | disposition home or self-care (01) ==
PROVIDERS: Anesthesiology; PCP Nurse Practitioner Family; Visit Provider Student in an Organized Health Care Education/Training Program
PROC: 0FT44ZZ Resection of Gallbladder, Percutaneous Endoscopic Approach (ICD-10-PCS; CPT 47562; principal; 2024-07-31 07:40)
DX: K80.10 Calculus of gallbladder with chronic cholecystitis without obstruction (principal); I10 Essential (primary) hypertension; K21.9 Gastro-esophageal reflux disease without esophagitis; E66.01 Morbid (severe) obesity due to excess calories; Z68.41 Body mass index [BMI] 40.0-44.9, adult; F41.1 Generalized anxiety disorder
CPT/HCPCS: 47562; 81025; 87070; 87075; 87205; 88304; J0690; J1100; J1170; J1885; J2250; J2405; J2704; J2710; J3010; J3490; J7030

== ENCOUNTER 2025-01-07 08:51 | Outpatient (CLI) | payer MEDICAID, SELFPAY ==
--- NOTE | 2025-01-07 08:57 | XR_ITS ---
WS: [id number] XR thoracic spine 2V [id number] REASON FOR EXAM: BACK PAIN FINDINGS: Approximately 12 degrees of dextroscoliosis of the thoracic spine. Normal kyphosis. No significant compression deformity or other vertebral body abnormality. Intervertebral disc spaces are intact and well preserved. XR/XR thoracic spine 2V [id number] IMPRESSION: Thoracic scoliosis as above.
--- NOTE | 2025-01-07 08:57 | XR_ITS ---
WS: [id number] XR cervical spine 3V* [id number] REASON FOR EXAM: NECK PAIN FINDINGS: Straightening of the normal lordosis of the cervical spine. Normal odontoid and normal cervical vertebral bodies. Intervertebral disc spaces are intact and well preserved. No significant listhesis. XR/XR cervical spine 3V* [id number] IMPRESSION: Straightening of the normal lordosis which may be muscle spasm. The cervical sp ine is otherwise unremarkable.
== END 2025-01-07 08:52 | disposition home or self-care (01) ==
LOC: RAD 08:52
PROVIDERS: PCP Nurse Practitioner Family; Visit Provider Nurse Practitioner Family
DX: M41.84 Other forms of scoliosis, thoracic region (principal); M54.2 Cervicalgia; R93.7 Abnormal findings on diagnostic imaging of other parts of musculoskeletal system
CPT/HCPCS: 72040; 72070